=== PATIENT | male | born 1990 | race Native Hawaiian/Other Pacific Islander ===

== ENCOUNTER 2021-04-10 13:26 | Outpatient (CLI) | payer OTHER ==
[2021-04-10 13:47] LABS: PLATELET COUNT 336 K/uL (142-355)
[2021-04-10 13:56] LABS: POTASSIUM 4.1 mmol/L (3.6-5.2)
[2021-04-10 14:05] LABS: PARTIAL THROMBOPLASTIN TIME 29.9 SECONDS (24.5-33.6)
== END 2021-04-10 19:02 | disposition home or self-care (01) ==
LOC: LABW 13:26
PROVIDERS: ATTEND Orthopaedic Surgery
DX: Z01.818 Encounter for other preprocedural examination (principal); E66.9 Obesity, unspecified
CPT/HCPCS: 36415; 80048; 85027; 85610; 85730; 87070; 93005